=== PATIENT | male | born 1960 | race African-American/Black ===

== ENCOUNTER 2023-10-15 18:08 | Emergency (ER) | payer OTHER ==
[2023-10-15 18:41] VITALS: RESP 22; TEMP 97.7; BMI 22.1
[2023-10-15 20:11] LABS: BASO % 0.3 % (0-2.0); EOS % 1.9 % (0-4.5); HEMATOCRIT 29.8 % (35.4-49); HEMOGLOBIN 9.6 GM/dL (11.7-16.9); LYMPH % 17.2 % (8-40); MCH 29.8 pg (25.7-33.7); MCHC 32.2 g/dl (32.0-35.9); MEAN CELL VOLUME 92.7 fl (80-96); MEAN PLT VOLUME 8.4 fl (7.5-11.1); MONO % 11.4 % (3.8-10.2); NEUT % 69.2 % (42.8-82.8); PLATELET COUNT 107 10^3/uL (134-434); RBC 3.21 M/mm3 (4.00-5.60); RDW 21.3 % (11.9-15.9); WHITE BLOOD COUNT 8.5 K/mm3 (4.0-10.0)
[2023-10-15 20:21] LABS: CHLORIDE 108 mmol/L (98-107); SODIUM 139 mmol/L (136-145)
[2023-10-15 20:23] LABS: CALCIUM 8.1 mg/dL (8.5-10.1); GLUCOSE,RANDOM 131 mg/dL (74-106)
[2023-10-15 20:24] LABS: ALBUMIN 3.2 g/dl (3.4-5.0); BLOOD UREA NITROGEN 21.1 mg/dL (7-18); CO2 26 mmol/L (21-32)
[2023-10-15 20:27] LABS: CREATININE 1.4 mg/dL (0.55-1.3); SGOT/AST 31 U/L (15-37); SGPT/ALT 19 U/L (13-61)
[2023-10-15 20:28] LABS: BILIRUBIN,TOTAL 0.4 mg/dL (0.2-1); TOT PROT 8.1 g/dl (6.4-8.2)
[2023-10-15 20:30] LABS: ALK PHOS 112 U/L (45-117)
[2023-10-15 20:31] LABS: ANION GAP 5 mmol/L (4-13); POTASSIUM 2.9 mmol/L (3.5-5.1)
[2023-10-15] MEDS ORDERED: KCL 10 MEQ IVPB 30 MEQ/300 ML INFUS.BAG IVPB ONE (20:57)
[2023-10-15] MEDS ORDERED: POTASSIUM CHLORIDE TABS 20 MEQ TABLET.ER (FP) PO ONE (20:57)
[2023-10-15] MEDS ORDERED: MAGNESIUM SULF 50% (8.12 MEQ/2 ML-1 GM VIAL) ONE (20:57)
[2023-10-15] MEDS: POTASSIUM CHLORIDE TABS 20 MEQ TABLET.ER (FP) PO ONE (21:02)
[2023-10-15] MEDS: MAGNESIUM SULFATE IN WATER 2 GM/50 ML IVPB IVPB ONE (21:02)
[2023-10-15 21:22] LABS: ANISOCYTOSIS 2+; MACROCYTOSIS 1+; OVALOCYTE 1+; TEAR DROP CELLS 1+
[2023-10-15] MEDS: LACTATED RINGERS SOLUTION 1000 ML INFUS.BAG IV ONE (21:33)
[2023-10-15] MEDS: KCL 10 MEQ IVPB 10 MEQ/100 ML INFUS.BAG IVPB SCH (21:33)
[2023-10-15 21:37] LABS: PLATELET ESTIMATE SLT DECREASE
[2023-10-15] MEDS ORDERED: LORazepam 0.5 MG TABLET ONE (23:35)
[2023-10-15] MEDS: LORazepam 0.5 MG TABLET PO ONE (23:42)
[2023-10-15 23:59] VITALS: BP 140/80; PULSE 92
== END 2023-10-16 00:17 | disposition home or self-care (01) ==
LOC: JER 18:08
PROC: 3E033GC Introduction of Other Therapeutic Substance into Peripheral Vein, Percutaneous Approach (ICD-10-PCS; principal; 2023-10-15)
DX: E87.6 Hypokalemia (principal); I10 Essential (primary) hypertension
CPT/HCPCS: 36415; 80053; 83735; 85025; 93005; 93010; 99284-25

== ENCOUNTER 2024-03-30 19:24 | Inpatient (IN) | payer OTHER ==
[2024-03-30 22:04] VITALS: BMI 23.5
[2024-03-30] MEDS ORDERED: chlordiazePOXIDE HCL 25 MG CAPSULE PO PRN (23:36)
[2024-03-30] MEDS ORDERED: MAG HYDROX/AL HYDROX/SIMETH 30 ML UNIT-DOSE CUP PO PRN (23:47)
[2024-03-30] MEDS ORDERED: BENZOCAINE/MENTHOL (CHLORASEPTIC ) LOZENGE MM PRN (23:47)
[2024-03-30] MEDS ORDERED: IBUPROFEN 600 MG TABLET (FP) PO PRN (23:47)
[2024-03-30] MEDS ORDERED: NALOXONE (NYS OPIOID OVERDOSE PROGRAM) 4 MG/0.1 ML SPRAY NS PRN (23:47)
[2024-03-30] MEDS ORDERED: MAGNESIUM HYDROX 2400MG/30ML ORAL SUSPENSION 30 ML CUP PO PRN (23:47)
[2024-03-30] MEDS ORDERED: NICOTINE POLACRILEX 2 MG LOZENGE BC PRN (23:47)
[2024-03-30] MEDS ORDERED: NICOTINE POLACRILEX 2 MG GUM BUC PRN (23:47)
[2024-03-30] MEDS ORDERED: BENZONATATE 200 MG CAPSULE PO PRN (23:47)
[2024-03-30] MEDS ORDERED: ONDANSETRON *ODT* 4 MG TABLET SL PRN (23:47)
[2024-03-30] MEDS ORDERED: LOPERAMIDE HCL 2 MG CAPSULE PO PRN (23:47)
[2024-03-30] MEDS ORDERED: guaiFENesin 600 MG TABLET.ER (FP) PO PRN (23:47)
[2024-03-30] MEDS ORDERED: POLYETHYLENE GLYCOL (HEALTHYLAX) 3350 17 GM PACKET PO PRN (23:47)
[2024-03-30] MEDS ORDERED: chlordiazePOXIDE HCL 25 MG CAPSULE ONE (23:53)
[2024-03-30] MEDS: chlordiazePOXIDE HCL 25 MG CAPSULE PO SCH (23:57)
[2024-03-31] MEDS: BISMUTH SUBSALICYLATE 524 MG/30 ML PO PRN (02:05)
[2024-03-31] MEDS: amLODIPine BESYLATE 10 MG TABLET (FP) PO SCH (10:41)
[2024-03-31] MEDS: PRENATAL VITAMINS W/ FOLIC ACID TABLET (FP) PO SCH (10:41)
[2024-03-31] MEDS: IBUPROFEN 400 MG TABLET (FP) PO PRN (10:43)
[2024-03-31] MEDS: ACETAMINOPHEN 325 MG TABLET (FP) PO PRN (17:08)
[2024-03-31] MEDS: ATORVASTATIN CA 20 MG TABLET (FP) PO SCH (22:44)
[2024-03-31] MEDS: MELATONIN 5 MG TABLETS PO SCH (22:45)
[2024-03-31] MEDS: THIAMINE 100 MG TABLET PO SCH (22:45)
[2024-04-01] MEDS: chlordiazePOXIDE HCL 25 MG CAPSULE PO SCH (05:45)
[2024-04-01] MEDS: PANTOPRAZOLE 40 MG TABLET PO SCH (10:27)
[2024-04-01] MEDS: KETOCONAZOLE 2% CREAM - 60GM TUBE TP SCH (12:40)
[2024-04-02] MEDS ORDERED: chlordiazePOXIDE HCL 10 MG CAPSULE PO PRN
[2024-04-02] MEDS: chlordiazePOXIDE HCL 10 MG CAPSULE PO SCH (05:44)
[2024-04-02 09:06] VITALS: RESP 18
[2024-04-02 10:38] LABS: HEMATOCRIT 21.3 % (35.4-49); MCH 27.5 pg (25.7-33.7); MCHC 30.4 g/dl (32.0-35.9); MEAN CELL VOLUME 90.4 fl (80-96); MEAN PLT VOLUME 10.4 fl (7.5-11.1); PLATELET COUNT 172 10^3/uL (134-434); RBC 2.35 M/mm3 (4.00-5.60); RDW 20.8 % (11.9-15.9)
[2024-04-02 10:53] LABS: HEMOGLOBIN 6.5 GM/dL (11.7-16.9)
[2024-04-02 11:10] LABS: POTASSIUM 4.3 mmol/L (3.5-5.1)
[2024-04-02 11:17] LABS: CALCIUM 8.6 mg/dL (8.5-10.1)
[2024-04-02 11:18] LABS: BLOOD UREA NITROGEN 22.6 mg/dL (7-18)
[2024-04-02 11:19] LABS: BILIRUBIN,TOTAL 0.2 mg/dL (0.2-1); TOT PROT 6.8 g/dl (6.4-8.2)
[2024-04-02 11:20] VITALS: BP 144/83; PULSE 85; TEMP 98
[2024-04-02 11:21] LABS: CREATININE 1.4 mg/dL (0.55-1.3)
[2024-04-03] MEDS ORDERED: chlordiazePOXIDE HCL 10 MG CAPSULE PO SCH (05:00)
[2024-04-04] MEDS ORDERED: chlordiazePOXIDE HCL 10 MG CAPSULE PO ONE (05:00)
== END 2024-04-02 19:30 | disposition home or self-care (01) | DRG 897 ==
LOC: YASAS 19:24 → Y3N 23:44
PROVIDERS: ADMIT Allergy & Immunology; ATTEND Surgery
PROC: HZ2ZZZZ Detoxification Services for Substance Abuse Treatment (ICD-10-PCS; principal; 2024-03-30)
DX: F10.230 Alcohol dependence with withdrawal, uncomplicated (principal); F17.210 Nicotine dependence, cigarettes, uncomplicated; F31.9 Bipolar disorder, unspecified; D50.8 Other iron deficiency anemias; E78.5 Hyperlipidemia, unspecified; I10 Essential (primary) hypertension; M25.561 Pain in right knee; M54.50 Low back pain, unspecified; G89.29 Other chronic pain
CPT/HCPCS: 36415; 80053; 80305; 80307; 85027

== ENCOUNTER 2024-04-02 11:59 | Emergency (ER) | payer OTHER ==
[2024-04-02 12:32] VITALS: RESP 18; BMI 21.3
[2024-04-02 18:09] VITALS: BP 123/76; PULSE 84; TEMP 98.5
== END 2024-04-02 18:09 | disposition home or self-care (01) ==
LOC: JER 11:59
DX: D64.9 Anemia, unspecified (principal)
CPT/HCPCS: 36430; 86900; 86922; 99283-25; P9058